=== PATIENT | male | born 1945 | race Caucasian/White ===

== ENCOUNTER 2024-10-16 15:20 | Emergency (ER) | payer MEDICARE ==
[~2024-10-16] VITALS: Ht 185.4 cm; Wt 128.0 kg
[~2024-10-16 15:20] MED LIST: CEPHALEXIN500 MG PO; FAMOTIDINE40 MG PO; FLOMAX0.4 MG PO; GLIPIZIDE ER10 MG PO; HUMULIN N100 UNIT/1 SUB-Q; HYDROCHLOROTH12.5 MG PO; MECLIZINE HCL25 MG PO; METFORMIN HCL1000 M1 PO; ZESTRIL20 MG PO
[2024-10-16] MEDS ORDERED: DOXYCYCLINE HY100 MG PO (17:19)
[2024-10-16 17:27] VITALS: BP 148/67
== END 2024-10-16 17:29 | disposition home or self-care (01) ==
LOC: ED 15:20
DX: E11.621 Type 2 diabetes mellitus with foot ulcer (principal); L97.529 Non-pressure chronic ulcer of other part of left foot with unspecified severity; S60.425A Blister (nonthermal) of left ring finger, initial encounter; I10 Essential (primary) hypertension; N40.0 Benign prostatic hyperplasia without lower urinary tract symptoms; Z79.4 Long term (current) use of insulin; Z79.84 Long term (current) use of oral hypoglycemic drugs; Z79.899 Other long term (current) drug therapy; X58.XXXA Exposure to other specified factors, initial encounter
CPT/HCPCS: 99282